=== PATIENT | female | born 1950 | race Caucasian/White ===

== ENCOUNTER 2020-04-03 21:35 | Outpatient (REF) | payer MEDICARE, SELFPAY ==
[2020-04-03 21:15] LABS: ALT 24 U/L (14-59); AST 28 U/L (15-37); Albumin 4.2 g/dL (3.4-5.0); Alkaline Phosphatase 82 U/L (46-116); Anion Gap 11.4 mmol/L (3-11); BUN 17 mg/dL (7-18); Bilirubin, Total 0.7 mg/dL (0.2-1.0); CO2 24.6 mmol/L (21.0-32.0); CREATININE 1.02 mg/dL (0.55-1.02); Calcium 8.9 mg/dL (8.5-10.1); Calculated LDL 90 mg/dL (<100); Chloride 93 mmol/L (98-107); Cholesterol 235 mg/dL (<200); Estimated GFR 54.05 (mL/min/1.73m2); Glucose 89 mg/dL (74-106); HDL Cholesterol 137 mg/dL (40-60); Potassium 4.5 mmol/L (3.5-5.1); Sodium 129 mmol/L (136-145); Total Protein 7.6 g/dL (6.4-8.2); Triglyceride 40 mg/dL (<150)
[2020-04-03 21:26] LABS: Hemoglobin A1C 5.3 % (<5.7)
== END 2020-04-03 21:55 ==
LOC: NCHCN 21:35
PROVIDERS: Visit Provider Nurse Practitioner Family
DX: I10 Essential (primary) hypertension (principal); Z13.1 Encounter for screening for diabetes mellitus
CPT/HCPCS: 80053; 80061; 83036

== ENCOUNTER 2020-04-08 20:22 | Outpatient (REF) | payer MEDICARE, SELFPAY ==
[2020-04-08 21:25] LABS: Anion Gap 10.5 mmol/L (3-11); BUN 19 mg/dL (7-18); CO2 25.5 mmol/L (21.0-32.0); CREATININE 1.07 mg/dL (0.55-1.02); Calcium 9.2 mg/dL (8.5-10.1); Chloride 98 mmol/L (98-107); Estimated GFR 51.15 (mL/min/1.73m2); Glucose 85 mg/dL (74-106); Potassium 4.6 mmol/L (3.5-5.1); Sodium 134 mmol/L (136-145)
== END 2020-04-08 20:42 ==
LOC: NCHCN 20:22
PROVIDERS: Visit Provider Nurse Practitioner Family
DX: E87.1 Hypo-osmolality and hyponatremia (principal); I10 Essential (primary) hypertension
CPT/HCPCS: 80048

== ENCOUNTER 2021-04-07 13:31 | Outpatient (REF) | payer MEDICARE, SELFPAY ==
[2021-04-07 22:04] LABS: ALT 27 U/L (14-59); AST 28 U/L (15-37); Alkaline Phosphatase 88 U/L (46-116); Anion Gap 11.1 mmol/L (3-11); BUN 18 mg/dL (7-18); Bilirubin, Total 0.7 mg/dL (0.2-1.0); CO2 25.9 mmol/L (21.0-32.0); CREATININE 1.1 mg/dL (0.55-1.02); Calcium 8.8 mg/dL (8.5-10.1); Calculated LDL 90 mg/dL (<100); Chloride 93 mmol/L (98-107); Cholesterol 234 mg/dL (<200); Estimated GFR 49.39 (mL/min/1.73m2); Glucose 95 mg/dL (74-106); HDL Cholesterol 134 mg/dL (40-60); Potassium 4.5 mmol/L (3.5-5.1); Sodium 130 mmol/L (136-145); Total Protein 7.5 g/dL (6.4-8.2); Triglyceride 54 mg/dL (<150)
== END 2021-04-07 13:32 | disposition home or self-care (01) ==
LOC: NCHCN 13:31
PROVIDERS: PCP Nurse Practitioner Family; Visit Provider Nurse Practitioner Family
DX: I10 Essential (primary) hypertension (principal)
CPT/HCPCS: 80053; 80061

== ENCOUNTER 2021-04-30 19:29 | Outpatient (REF) | payer MEDICARE, SELFPAY ==
[2021-04-30 15:57] LABS: Hemoglobin A1C 5.6 % (<5.7)
[2021-04-30 16:06] LABS: Anion Gap 7.9 mmol/L (3-11); BUN 23 mg/dL (7-18); CO2 26.1 mmol/L (21.0-32.0); CREATININE 1.2 mg/dL (0.55-1.02); Calcium 8.8 mg/dL (8.5-10.1); Chloride 97 mmol/L (98-107); Estimated GFR 44.68 (mL/min/1.73m2); Glucose 102 mg/dL (74-106); Potassium 4.7 mmol/L (3.5-5.1); Sodium 131 mmol/L (136-145)
== END 2021-04-30 19:30 | disposition home or self-care (01) ==
LOC: NCHCN 19:29
PROVIDERS: PCP Nurse Practitioner Family; Visit Provider Nurse Practitioner Family
DX: R73.03 Prediabetes (principal); E87.1 Hypo-osmolality and hyponatremia
CPT/HCPCS: 80048; 83036

== ENCOUNTER 2022-05-06 13:02 | Outpatient (REF) | payer MEDICARE, SELFPAY ==
[2022-05-06 15:52] LABS: Anion Gap 8.1 mmol/L (3-11); BUN 18 mg/dL (7-18); CO2 25.9 mmol/L (21.0-32.0); Calcium 9.1 mg/dL (8.5-10.1); Chloride 97 mmol/L (98-107); Estimated GFR 60.98 (mL/min/1.73m2); Glucose 91 mg/dL (74-106); Potassium 4.9 mmol/L (3.5-5.1); Sodium 131 mmol/L (136-145)
== END 2022-05-06 13:03 | disposition home or self-care (01) ==
LOC: NCHCN 13:02
PROVIDERS: PCP Nurse Practitioner Family; Visit Provider Nurse Practitioner Family
DX: I10 Essential (primary) hypertension (principal)
CPT/HCPCS: 80048

== ENCOUNTER 2023-08-17 14:00 | Outpatient (REF) | payer MEDICARE, SELFPAY ==
[2023-08-17 14:31] LABS: Abs Immature Grans 0.03 10^3/uL (0.0-0.06); Absolute Basophil Count 0.02 10^3/uL (0.0-0.2); Absolute Eosinophil Count 0.03 10^3/uL (0.0-0.7); Absolute Lymphocyte Count 1.19 10^3/uL (1.2-3.4); Absolute Monocyte Count 0.81 10^3/uL (0.1-0.8); Absolute Neutrophil Count 5.83 10^3/uL (1.2-6.7); Basophils % 0.3; Eosinophils % 0.4; HCT 40.3 % (36.0-46.0); Immature Grans % 0.4; MCH 32.6 pg (27.0-33.0); MCHC 34.7 % (32.0-36.0); MCV 94 fL (80-95); Monocytes % 10.2; Neutrophils % 73.7; RDW 13.5 % (11.7-14.6); RDW-SD 45.8 fL; WBC 7.91 10^3/uL (4.4-10.8)
[2023-08-17 14:48] LABS: ALT 37 U/L (14-59); AST 29 U/L (15-37); Alkaline Phosphatase 78 U/L (46-116); Anion Gap 8.6 mmol/L (3-11); BUN 25 mg/dL (7-18); Bilirubin, Total 0.6 mg/dL (0.2-1.0); CO2 27.4 mmol/L (21.0-32.0); Calcium 8.8 mg/dL (8.5-10.1); Chloride 93 mmol/L (98-107); ESR 10 mm/hr (0-30); Estimated GFR 60.23 (mL/min/1.73m2); Glucose 115 mg/dL (74-106); Potassium 4.9 mmol/L (3.5-5.1); Sodium 129 mmol/L (136-145); Total Protein 7.8 g/dL (6.4-8.2)
[2023-08-17 14:53] LABS: C-Reactive Protein < 0.50 mg/dL (<or=0.5)
== END 2023-08-17 14:01 | disposition home or self-care (01) ==
LOC: NCHCN 14:00
PROVIDERS: PCP Nurse Practitioner Family; Visit Provider Family Medicine
DX: I10 Essential (primary) hypertension (principal); L20.9 Atopic dermatitis, unspecified; R21 Rash and other nonspecific skin eruption
CPT/HCPCS: 80053; 85652; 85025; 86140

== ENCOUNTER 2024-06-28 14:00 | Outpatient (REF) | payer MEDICARE, SELFPAY ==
[2024-07-03 14:33] LABS: Bacterial Vaginosis (BV) Negative (Negative); Candida glabrata Negative (Negative); Candida species group Negative (Negative); Trichomonas vaginalis Negative (Negative)
== END 2024-06-28 14:01 | disposition home or self-care (01) ==
LOC: NCHCN 14:00
PROVIDERS: PCP Nurse Practitioner Family; Visit Provider Family Medicine
DX: B37.31 Acute candidiasis of vulva and vagina (principal)
CPT/HCPCS: 81513; 87481; 87661